=== PATIENT | male | born 1975 | race Caucasian/White ===

== ENCOUNTER 2020-08-27 11:58 | Emergency (ER) | payer BC, SELFPAY ==
[2020-08-27 12:05] VITALS: BP 159/108; PULSE 62; TEMP 36.9; O2SAT 99
[2020-08-27 13:11] VITALS: BP 145/100; PULSE 61; TEMP 36.6; O2SAT 97
[2020-08-27 13:13] VITALS: BP 145/100; PULSE 61; TEMP 36.6; O2SAT 97
--- NOTE | 2020-08-27 14:05 | ED.GENADUL_ITS ---
Discharge Plan Disposition Patient Disposition: HOME Condition: Good Discharge Details Clinical Impression: Cellulitis and abscess of leg Primary Care Provider: Em,Local ED Provider: Renae uHerta Home Meds and New Rx's Prescriptions: New cephalexin 500 mg capsule 500 mg PO QID Qty: 40 RF: 0 No Action Advair HFA 115-21 mcg/actuation Hfa Aerosol Inhaler 1 puff INHALATION DAILY RF: 0 Xeljanz 5 mg Tablet 5 mg PO BID RF: 0 Discharge Instructions Instructions: Cellulitis (ED) Additional Instructions: Warm compresses Take antibiotic as prescribed Elevate Recommend 5 to 10 minutes of warm compress with warm facecloth and elevation for the next several days Yogurt daily while on antibiotic Recheck in 48 hours Return earlier with significant spreading redness, fever, chills, or with any new or progressing symptoms Medical Decision Making -Keflex Suspect abscess with surrounding cellulitis No purulent material aspirated on attempted incision and drainage, afebrile and nontoxic Placed on Keflex 48-hour recheck recommended Discharged home in stable condition with stable vitals No clinical evidence of thrombophlebitis, deep vein thrombosis, Blood pressure recommended to be rechecked by primary care physician in the out patient setting Differential Diagnosis Differential Diagnosis: Abscess, cellulitis, DVT, superficial thrombophlebitis Medical Records Medical records reviewed: Yes I reviewed the patient's medical records. HPI This 44-year-old male past medical history of ulcerative colitis, presents with right lower extremity tenderness with swelling. He claimed calf and the dorsum a week ago accidentally. He denies lacerating the leg at that time. Denies fever or chills. Tarted becoming more red and swollen 2 days prior to arrival. Not currently taking antibiotics. Describes the pain as burning sensation. General Date/Time Provider Initiated Documentation: 08/27/20 13:06 . Related Data Home Medications Medication Instructions Recorded Confirmed cephalexin 500 mg PO QID #40 cap 08/27/20 fluticasone propion-salmeterol 1 puff INHALATION DAILY 08/27/20 08/27/20 [Advair HFA] tofacitinib [Xeljanz] 5 mg PO BID 08/27/20 08/27/20 Previous Rx's Medication Instructions Recorded cephalexin 500 mg PO QID #40 cap 08/27/20 Allergies Allergy/AdvReac Type Severity Reaction Status Date / Time No Known Allergies Allergy Unverified 08/27/17 16:46 General Stated Complaint: Orthopedic [place]: 3 Review of Systems Narrative: Review of systems negative x3 aside from where indicated in HPI, specifically no history of coagulopathy, fever, PFSH Social History Smoking/Tobacco Use Status: Never Smoking risk assessment performed?: Yes Alcohol Intake: current Alcohol Intake frequency: a few times a week Alcohol type: beer, wine and hard liquor Drug use: Never Substance use type: does not use Do you feel safe at home: Yes Do you feel safe in your relationship?: Yes Exam Const General: cooperative and comfortable Extrem Knee images: 1. Erythema, induration, approximately 6 inch area of erythema, no lymphangitis, no crepitus Other: Distal pulses intact Course Vital Signs Vital signs: Vital Signs Temperature 36.9 C 08/27/20 12:05 Pulse 62 08/27/20 12:05 Blood Pressure 159/108 H 08/27/20 12:05 Pulse Oximetry 99 08/27/20 12:05 Temperature 36.6 C 08/27/20 13:13 Temperature Source Skin 08/27/20 13:11 Pulse 61 08/27/20 13:13 Respiratory Effort Non-Labored 08/27/20 12:09 Blood Pressure 145/100 H 08/27/20 13:13 Blood Pressure Position Sitting 08/27/20 12:05 Pulse Oximetry 97 08/27/20 13:13 Oxygen Delivery Method Room Air 08/27/20 12:05 Oxygen Flow Rate 0 08/27/20 12:05 Pain Level 8 08/27/20 12:05 Procedures Abscess I/D Site: Lower Extremity Side (if applicable): Right Local Anesthetic: Lidocaine 1% and With Epi Technique: Needle Aspiration Irrigation: No Packing used?: None
== END 2020-08-27 13:13 | disposition home or self-care (01) ==
PROVIDERS: Emergency Provider Physician Assistant
DX: L03.115 Cellulitis of right lower limb (principal); L02.415 Cutaneous abscess of right lower limb
CPT/HCPCS: 10060